=== PATIENT | male | born 1990 | race Caucasian/White ===

== ENCOUNTER 2025-01-03 10:32 | Inpatient (IN) | payer OTHER, SELFPAY ==
[2025-01-03] VITALS (21 sets, daily range): BP systolic 91–129; BP diastolic 50–86; PULSE 67–96; RESP 9–30; TEMP 37.1–37.4; O2SAT 94–100; BMI 29.5
--- OUTSIDE RECORDS SUMMARY | 2025-01-03 10:40 | XMS_ITS | Clinical Summary ---
Author Organization [facility] Address [address] 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 Unavailable Primary Care Provider Unavailabl e Allergies No known active allergies Active Problems Problem Noted Date Diagnosed Date Closed fracture of metatarsal bone(s) 01/17/2011 Adjustment disorder with mix ed disturbance of emotions and conduct 11/08/2008 Academic problem 08/19/2008 Immunizations Immunization Administration Dates Next Due (M-M-R II/PRIORIX)(12 MO UP) MEASLES, MUMPS AND RUBELLA VIRUS VACCINE, 0.5 ML IM/SUBCUT 01/21/1996,01/02/1993 Dt Dtp Dtap Vaccine 04/05/2006, 6,07/24/1993,1992,09/08/1992,1991,1991 HIB, Unspecified Formulation 03/17/1993, 01/02/1993,09/08/1992,1991 Hepatitis B Vaccine 04/07/1996,01/21/1996,1995 IPV/OPV 01/21/1996,199 4,1991,1991 Family History Medical History Relation Name Comments Healthy Brother 1 Healthy Brother 2 Healthy Father Healthy Mother Healthy Sister Relation Name Status Comments Brother 1 Alive Brother 2 Alive Father Alive Mother Alive Sister Alive Social History Tobacco Use Types Packs/Day Years Used Date Smoking Tobacco: Some Days Smokeless Tobacco: Never Comments:Quit smokin-3 c igarettes per day Alcohol Use Standard Drinks/Week Comments No 0 (1 standard drink = 0.6 oz pur e alcohol) Sex and Gender Information Value Date Recorded Sex Assigned at Not on file 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 Gender Identity Not on file Sexual Orientation Not on file Plan of Treatment Health Maintenance Due Date Last Done Comments DTAP/TDAP/TD VACCINES (7 - Tdap) 04/05/2016 04/05/2006, 04/07/1996, 07/24/1993, Additional history exists HPV VACCINES (1 - 3-dose SCD M series) 08/31/2018 INFLUENZA VACCINE (#1) 2024 HEPATITIS B VACCINES Completed 04/07/1996, 01/21/1996, 07/25/1995 Medical Devices Implanted Type Area Nutritional Services Host Device Identifier Shelf Expiration Date Model / Serial / Lot Wire K Trocar Dbl .[id number] Implanted:Qty: 1 on 01/23/2011 Wire Left: Foot [facility] [id number]- 29-45 S / / [id number] Insurance [place] CCN OPTUM
--- NOTE | 2025-01-03 11:13 | CTR_ITS ---
PROCEDURE INFORMATION: Exam: CT Abdomen And Pelvis With Contrast Exam date and time: 01/03/2025 11:30 AM Age: 34 years old Clinical indication: Abdominal pain; Localized; Right; Additional info: Abd pain TECHNIQUE: Imaging protocol: Computed tomography of the abdomen and pelvis with contrast. Radiation optimization: All CT scans at this facility use at least one of these dose optimization techniques: automated exposure control; mA and/or kV adjustment per patient size (includes targeted exams where dose is matched to clinical indication); or iterative reconstruction. Contrast material: OMNIPAQUE 350; Contrast volume: 100 ml; Contrast route: INTRAVENOUS (IV); COMPARISON: No relevant prior studies available. RADIATION DOSE METRICS: Total DLP (mGy-cm): 685.75 FINDINGS: Liver: Normal. No mass. Gallbladder and biliary ducts: Normal. No calcified stones. No ductal dilation. Pancreas: Normal. No ductal dilation. Spleen: Normal. No splenomegaly. Adrenal glands: Normal. No mass. Kidneys and ureters: Normal. No hydronephrosis. Stomach and bowel: Unremarkable. No obstruction. No mucosal thickening. Appendix: No evidence of appendicitis. Intraperitoneal space: Unremarkable. No free air. No significant fluid collection. Vasculature: Unremarkable. No abdominal aortic aneurysm. Lymph nodes: Mildly prominent mesenteric lymph nodes noted in the right lower quadrant, the largest measuring 0.7 cm in transverse dimension. Urinary bladder: Unremarkable as visualized. Reproductive: Unremarkable as visualized. Bones/joints: Unremarkable. No acute fracture. Soft tissues: Unremarkable. CT/CT abdomen pelvis w con* [id number] IMPRESSION: Imaging findings suggestive of mesenteric adenitis. Otherwise no acute findings.
--- NOTE | 2025-01-03 11:18 | W.ED.ABDPA2 ---
HPI - Abdominal Pain General: Chief Complaint: Abdominal Pain Stated Complaint: n/v, upper R abd pain Time Seen by Provider: 01/03/25 11:04 Source: patient Mode of arrival: ambulatory Limitations: no limitations History of Present Illness: 34-year-old male states he started having severe right sided abdominal pain at 530 this morning. States pain is very sharp in nature rates it a 10 out of 10 he is in obvious distress. States is mainly in the right upper quadrant. Denies any history of abdominal issues in the past. Associated Symptoms: Denies chills, diarrhea, dysuria, fever(s), nausea and vomiting Related Data Home Medications ?Medication ?Instructions ?Recorded ?Confirmed citalopram 20 mg tablet 30 mg PO DAILY anxiety 01/03/25 01/03/25 Allergies Allergy/AdvReac Type Severity Reaction Status Date / Time No Known Allergies Allergy Verified 01/03/25 10:45 Review of Systems Const: Denies: fever(s), chills, body aches or change in appetite ENMT: Denies: throat pain or dental pain Card: Denies: chest pain Resp: Denies: dyspnea GI: Reports: abdominal pain; Denies: nausea, vomiting or diarrhea : Denies: dysuria Musc: Denies: neck pain or back pain Skin/Breast: Denies: rash Neuro: Denies: headache(s) Physical Exam Const: COMMON NORMALS: patient oriented x3 HENMT: COMMON NORMALS: normocephalic and atraumatic HEAD & SCALP: normocephalic and atraumatic Eye: COMMON NORMALS: Equal, round and reactive pupils present and EOMs intact bilaterally PUPIL: Yes Equal, round and reactive pupils present Neck/C-Spine: COMMON NORMALS: full ROM and supple Chest: COMMONS NORMALS: normal inspection of the chest Resp: COMMON NORMALS: normal respiratory effort, No retractions, No use of accessory muscles and clear to auscultation bilaterally AUSCULTATION: clear to auscultation bilaterally Cardio: COMMON NORMALS: regular rate, regular rhythm and No murmurs present (Cardio) RATE: regular rate RHYTHM: regular rhythm GI: COMMON NORMALS: Normal to inspection, nondistended, normoactive bowel sounds present, Soft to palpation and no masses PALPATION: Yes Soft to palpation and Yes Tenderness to palpation present (GI) Details: RUQ Extremity: COMMON NORMALS: normal to inspection and full ROM Neuro: COMMON NORMALS: patient oriented x3, moves all extremities and no focal motor deficits Psych: COMMON NORMALS: mental status grossly normal, Normal thought process present and cooperative THOUGHT PROCESS: Normal thought process present Skin: COMMON NORMALS: no rashes or lesions noted and no wounds GENERAL SKIN EXAM: no rashes or lesions noted Course Vital Signs: Vital signs: Vital Signs Temperature 98.8 F 01/03/25 10:46 Pulse Rate 92 01/03/25 13:15 Respiratory Rate 22 H 01/03/25 11:53 Blood Pressure 105/57 01/03/25 13:15 Pulse Oximetry 100 01/03/25 13:15 Oxygen Delivery Me thod Room Air 01/03/25 13:15 MDM - Abdominal Pain Medical Decision Making Patient presents here with abdominal pain he was found to have an elevated white count along with elevated lactate CT along with CTA showed no acute findings his pain has improved on my reexam he he had minimal tenderness but will admit him with his elevated white count lactate he did receive sepsis bolus along with IV antibiotics. I spoke to surgeon on-call who is consulted and will admit to ICU Medical Records I reviewed the patient's medical records. Lab Data I reviewed the patient's lab results. 01/03/25 11:12 01/03/25 11:12 Labs/Radiology: Radiology Impressions Abdomen/Pelvis CT 01/03/25 11:13 IMPRESSION: Imaging findings suggestive of mesenteric adenitis. Otherwise no acute findings. Chest/Abdomen/Pelvis CT 01/03/25 12:01 IMPRESSION: No acute pathology in the chest, abdomen, or pelvis. Laboratory Results WBC 26.59 10^3/uL (3.29-11.43) H 01/03/25 11:12 RBC 4.95 10^6/uL (3.85-5.65) 01/03/25 11:12 Hgb 15.00 g/dL (11.27-16.99) 01/03/25 11:12 Hct 45.4 % (37-53) 01/03/25 11:12 MCV 91.7 fl (82-101) 01/03/25 11:12 MCH 30.3 pg (27-33) 01/03/25 11:12 MCHC 33.0 g/dL (30-55) 01/03/25 11:12 RDW 13.2 % (12.1-15.1) 01/03/25 11:12 Plt Count 396 10^3/cmm (157-399) 01/03/25 11:12 MPV 9.5 fL (7.4-10.4) 01/03/25 11:12 Neut % (Auto) 82.7 % 01/03/25 11:12 Lymph % (Auto) 7.4 % 01/03/25 11:12 [place] % (Auto) 8.8 % 01/03/25 11:12 Eos % (Auto) 0.0 % 01/03/25 11:12 Baso % (Auto) 0.3 % 01/03/25 11:12 Neut # (Auto) 21.99 10^3/uL (1.8-7.7) H 01/03/25 11:12 Lymph # (Auto) 2.0 10^3/uL (0.8-4.8) 01/03/25 11:12 [place] # (Auto) 2.3 10^3/uL (0.2-0.9) H 01/03/25 11:12 Eos # (Auto) 0.0 10^3/uL (0.0-0.8) 01/03/25 11:12 Baso # (Auto) 0.1 10^3/uL (0.0-0.1) 01/03/25 11:12 Nucleated RBC % (auto) 0 % 01/03/25 11:12 Nucleated RBCs # 0.0 /100WBC 01/03/25 11:12 Specimen Type Venous 01/03/25 12:23 Sample Site Brachial, left 01/03/25 12:23 ABG pH 7.24 (7.35-7.45) L 01/03/25 12:23 ABG pCO2 31.8 mmHg (35-45) L 01/03/25 12:23 ABG pO2 30.7 mmHg (80.0-100.0) L* 01/03/25 12:23 ABG PO2/FiO2 Ratio 146 01/03/25 12:23 ABG HCO3 13.6 mmol/L (22-26) L 01/03/25 12:23 ABG Base Excess -12.6 mmol/L (-2.0-2.0) L 01/03/25 12:23 Mayank Test N/a 01/03/25 12:23 Hematocrit 42.3 % (42-52) 01/03/25 12:23 O2 Delivery Device Room air 01/03/25 12:23 FiO2 21.0 % 01/03/25 12:23 Nuclear Logging Engineer ID Amh 01/03/25 12:23 Sodium 143 mmol/L (136-145) 01/03/25 11:12 Potassium 3.8 mmol/L (3.5-5.1) 01/03/25 11:12 Chloride 100 mmol/L (98-107) 01/03/25 11:12 Carbon Dioxide 9 mmol/L (22-29) L 01/03/25 11:12 Anion Gap 37.8 (5-19) H 01/03/25 11:12 BUN 15 mg/dL (6-20) 01/03/25 11:12 Creatinine 1.1 mg/dL (0.7-1.2) 01/03/25 11:12 GFR Calculation 77.1 mL/min (90-130) L 01/03/25 11:12 Glucose 93 mg/dL (65-115) 01/03/25 11:12 Calculated Osmolality 297 mOsm/kg (285-295) H 01/03/25 11:12 Lactic Acid 10.6 mmol/L (0.5-2.2) H* 01/03/25 11:12 Calcium 9.4 mg/dL (8.5-10.5) 01/03/25 11:12 Total Bilirubin 0.6 mg/dL (0.15-1.2) 01/03/25 11:12 AST 25 U/L (0-40) 01/03/25 11:12 ALT 21 U/L (0-41) 01/03/25 11:12 Alkaline Phosphatase 50 U/L (40-130) 01/03/25 11:12 Total Protein 8.7 g/dL (6.6-8.7) 01/03/25 11:12 Albumin 5.0 g/dL (3.5-5.2) 01/03/25 11:12 Globulin 3.7 g/dL (1.3-4.6) 01/03/25 11:12 Lipase 13 U/L (13-60) 01/03/25 11:12 Urine Color Yellow (Yellow) 01/03/25 13:13 Urine Appearance Clear (CLEAR) 01/03/25 13:13 Urine pH 5.0 (5-7) 01/03/25 13:13 Ur Specific [place] 1.088 (1.005-1.030) H 01/03/25 13:13 Urine Protein Trace (Negative) A 01/03/25 13:13 Urine Glucose (UA) Negative (Normal) 01/03/25 13:13 Urine Ketones 3+ (Negative) H 01/03/25 13:13 Urine Blood Negative (Negative) 01/03/25 13:13 Urine Nitrate Negative (Negative) 01/03/25 13:13 Urine Bilirubin Negative (Negative) 01/03/25 13:13 Urine Urobilinogen 0.2 mg/dL (Negative) 01/03/25 13:13 Ur Leukocyte Esterase Negative (Negative) 01/03/25 13:13 Urine RBC 0-2 /hpf (0-2) 01/03/25 13:13 Urine WBC 0-5 /hpf (0-5) 01/03/25 13:13 Ur Squamous Epith Cells 0-5 /hpf (0-5) 01/03/25 13:13 Amorphous Sediment Not Reportable 01/03/25 13:13 Urine Bacteria None seen /hpf (NONE) 01/03/25 13:13 Hyaline Casts 0-4 /lpf H 01/03/25 13:13 Urine Opiates Screen Positive ng/mL (Negative) H 01/03/25 13:13 Ur Barbiturates Screen Negative ng/mL (Negative) 01/03/25 13:13 Ur Phencyclidine Scrn Negative ng/mL (Negative) 01/03/25 13:13 Ur Amphetamines Screen Negative ng/mL (Negative) 01/03/25 13:13 U Benzodiazepines Scrn Negative ng/mL (Negative) 01/03/25 13:13 Urine Cocaine Screen Negative ng/mL (Negative) 01/03/25 13:13 U Marijuana (THC) Screen Positive ng/mL (Negative) H 01/03/25 13:13 All radiology interpretation(s) finalized by discharge Critical Care Time Critical Care Time: Critical Care Time: Yes Total Critical Care Time: 40 Attestation: The high probability of a clinically significant, sudden or life threatening deterioration of the patient's gi system(s) required my full and direct attention, intervention and personal management. The critical care time is as shown. 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
[2025-01-03 11:26] LABS: Hematocrit 45.4 % (37-53); Hemoglobin 15.00 g/dL (11.27-16.99); Mean Corpuscular HGB Conc 33.0 g/dL (30-55); Mean Corpuscular Hemoglobin 30.3 pg (27-33); Mean Corpuscular Volume 91.7 fl (82-101); Nucleated Red Blood Cells % 0 %; Platelet Count 396 10^3/cmm (157-399); Red Blood Count 4.95 10^6/uL (3.85-5.65); White Blood Count 26.59 10^3/uL (3.29-11.43)
[2025-01-03] MEDS: HYDROmorphone 0.5 MG/0.5 ML INJ 1 MG IVP ×2 (11:29→13:09)
[2025-01-03] MEDS: ondansetron 2 mg/ML SDV 2 mL 4 MG IVP ×3 (11:30→19:59)
[2025-01-03] MEDS: iohexol 350 mg/mL 500 mL Btl (per mL) IV ×2 (11:33→12:41)
[2025-01-03 11:47] LABS: Alanine Aminotransferase 21 U/L (0-41); Albumin Level 5.0 g/dL (3.5-5.2); Alkaline Phosphatase 50 U/L (40-130); Anion Gap 37.8 (5-19); Aspartate Amino Transferase 25 U/L (0-40); Blood Urea Nitrogen 15 mg/dL (6-20); Calcium 9.4 mg/dL (8.5-10.5); Chloride 100 mmol/L (98-107); Creatinine Clr Calc Pharmacy 106.3342; Globulin 3.7 g/dL (1.3-4.6); Glucose 93 mg/dL (65-115); Lipase 13 U/L (13-60); Osmolality Calculated 297 mOsm/kg (285-295); Potassium 3.8 mmol/L (3.5-5.1); Sodium 143 mmol/L (136-145); Total Protein 8.7 g/dL (6.6-8.7)
[2025-01-03 11:49] LABS: Carbon Dioxide 9 mmol/L (22-29)
[2025-01-03 11:55] LABS: Lactic Sepsis W/Reflex 10.6 mmol/L (0.5-2.2)
[2025-01-03 12:00] LABS: Reflex Lactate Order REFLEX LACTIC ORDERD
--- NOTE | 2025-01-03 12:01 | CTR_ITS ---
PROCEDURE INFORMATION: Exam: CTA Chest With Contrast CTA Abdomen and Pelvis With Contrast Exam date and time: 01/03/2025 12:33 PM Age: 34 years old Clinical indication: Right-sided; Abdominal pain; Localized; Right upper quadrant (ruq); Additional info: Cp/abd pain TECHNIQUE: Imaging protocol: Computed tomographic angiography of the chest with contrast. Exam focused on the arteries. Computed tomographic angiography of the abdomen and pelvis with contrast. Exam focused on the arteries. 3D rendering (Not supervised by radiologist): MIP and/or 3D reconstructed images were created by the technologist. Radiation optimization: All CT scans at this facility use at least one of these dose optimization techniques: automated exposure control; mA and/or kV adjustment per patient size (includes targeted exams where dose is matched to clinical indication); or iterative reconstruction. Contrast material: OMNI 350; Contrast volume: 100 ml; Contrast route: INTRAVENOUS (IV); COMPARISON: CT abdomen pelvis w con* [id number] 01/03/2025 11:30 AM RADIATION DOSE METRICS: Total DLP (mGy-cm): 1099 FINDINGS: VASCULATURE: Pulmonary arteries: Normal. No pulmonary emboli. Aorta: No aortic aneurysm. No aortic dissection. Celiac trunk and mesenteric arteries: No occlusion or significant stenosis. Renal arteries: No occlusion or significant stenosis. Right iliac arteries: No occlusion or significant stenosis. Left iliac arteries: No occlusion or significant stenosis. CHEST: Lungs: Unremarkable. No consolidation. No masses. Pleural spaces: Unremarkable. No pneumothorax. No pleural effusion. Heart: Unremarkable. No cardiomegaly. No pericardial effusion. ABDOMEN AND PELVIS: Liver: The liver is diffusely decreased in density, compatible with hepatic steatosis. No discrete mass lesion identified. Gallbladder and biliary ducts: Unremarkable. No calcified stones. No ductal dilation. Pancreas: Unremarkable. No mass. No ductal dilation. Spleen: Unremarkable. No splenomegaly. Adrenal glands: Unremarkable. No mass. Kidneys and ureters: Unremarkable. No solid mass. No hydronephrosis. Stomach and bowel: Unremarkable. No obstruction. No mucosal thickening. Appendix: No evidence of appendicitis. Intraperitoneal space: Unremarkable. No free air. No significant fluid collection. Urinary bladder: Unremarkable. No mass. Reproductive: Unremarkable as visualized. Lymph nodes: Small right hilar calcified lymph nodes noted, likely sequela of previous granulomatous disease. Bones/joints: Unremarkable. No acute fracture. Soft tissues: Unremarkable. CT/CT angio chest w abd pel w con IMPRESSION: No acute pathology in the chest, abdomen, or pelvis.
[2025-01-03 12:35] LABS: ABG PCO2 31.8 mmHg (35-45); ABG PH Result 7.24 (7.35-7.45); Arterial Blood Gas Hematocrit 42.3 % (42-52); Blood Gas Operator Identificat AMH; Blood Gas Sample Site Brachial, left; HCO3 ABG 13.6 mmol/L (22-26); PO2 ABG 30.7 mmHg (80.0-100.0); PO2 FiO2 Ratio Arterial Blood 146
[2025-01-03 12:38] LABS: Blood Gas Sample Type Venous
[2025-01-03] MEDS: piperacillin-tazobactam 3.375 GM in sodium chloride 0.9% (plus) 50 ML IV (12:51)
[2025-01-03 13:21] LABS: Glucose Urine UA Negative (Normal); Nitrate Urine Negative (Negative)
[2025-01-03 13:26] LABS: Add Urine Microscopic? YES; Specific Gravity, Urine 1.088 (1.005-1.030)
[2025-01-03 13:49] LABS: PCP Screen Urine Negative (Negative)
--- NOTE | 2025-01-03 14:07 | P.CONIM_ITS ---
Providers/Reason For Consult 2 Consulting Physician/Specialty*: General Surgery Reason for Consult*: Severe abdominal pain and lactic acidosis History of Present Illness History of Present Illness Prince Oconnor is a 34 year old male who presents to the hospital with severe abdominal pain in the right upper quadrant that started around 5:30 AM this morning. The pain was so severe that the patient was having difficulty breathing causing hyperventilation. At the time of his arrival to the ER he was noted to have a white count of 26 and a lactate level of 10 but a normal CTA of the chest abdomen and pelvis. His pain improved after medication administration by the time of my evaluation abdominal pain is fairly controlled patient is breathing normally. Endorses having drink last night but no significant use of illicit substances. Review of Systems 2 General: Reports: 10 or more systems reviewed and unremarkable except in HPI and below Medications/Allergies Home Medications ?Medication ?Instructions ?Recorded ?Confirmed ?Last Taken ?Type citalopram 20 mg tablet 30 mg PO DAILY anxiety 01/0301/03/25 01/02/25 21:00 History Allergies Allergy/AdvReac Type Severity Reaction Status Date / Time No Known Allergies Allergy Verified 01/03/25 10:45 Vitals/I&O/Wt Last Vital Signs Temp 98.8 F 01/03/25 10:46 Pulse 92 01/03/25 13:15 Resp 22 H 01/03/25 11:53 BP 105/57 01/03/25 13:15 Pulse Ox 100 01/03/25 13:15 O2 Del Method Room Air 01/03/25 13:15 01/02/25 01/03/25 01/03/25 22:59 06:59 14:59 Intake Total 2048 Balance 2048 Weight last 48 hrs Weight 200 lb Physical Exam 2 GI: OTHER: Benign abdominal exam abdomen soft minimally tender in the right upper quadrant nondistended. Data 01/03/25 11:12 01/03/25 11:12 Micro: Microbiology 01/03/25 13:05 Blood Culture - Preliminary Blood SPECIMEN COLLECTED 01/03/25 12:22 Blood Culture - Preliminary Blood SPECIMEN COLLECTED A&P Assessment and plan 1. Abdominal pain: Plan: After complete history physical examination and review of all available clinical data the following is my assessment. Patient clinical presentation is unusual. I think he is symptoms are multifactorial, but there is a high likelihood of a transitory vascular spasm causing the elevation in the lactate level as well as the severe abdominal pain. This may have been worsened by severe hyperventilation as described by the patient has noted on his CO2 level of 9 when he arrived. There is no indication for any acute surgical intervention, I do agree with overnight observation, IV hydration, monitoring of lactate level and abdominal exam and empiric IV antibiotics. If this is a transitory issue as suspected patient most likely will have significant improvement of all the laboratory markets and physical examination by the morning. General surgery will continue to follow-up, all other management per primary team. PDMP PDMP Reviewed: Not Reviewed Coding Level of Care Code Acute Code for Chg Fwd Diagnoses Abdominal pain R10.9
[2025-01-03 14:49] LABS: Lactic Acid level (Lactate) 4.9 mmol/L (0.5-2.2)
--- OUTSIDE RECORDS SUMMARY | 2025-01-03 14:49 | XMS_ITS | Clinical Summary ---
Author Organization [facility] Address [address] 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 Gender Identity Not on file Sexual Orientation Not on file Plan of Treatment Health Maintenance Due Date Last Done Comments DTAP/TDAP/TD VACCINES (7 - Tdap) 04/05/2016 04/05/2006, 04/07/1996, 07/24/1993, Additional history exists HPV VACCINES (1 - 3-dose SCD M series) 08/31/2018 INFLUENZA VACCINE (#1) 2024 HEPATITIS B VACCINES Completed 04/07/1996, 01/21/1996, 07/25/1995 Medical Devices Implanted Type Area Utility Clerk Device Identifier Shelf Expiration Date Model / Serial / Lot Wire K Trocar Dbl .[id number] Implanted:Qty: 1 on 01/23/2011 Wire Left: Foot [email or web address] [id number]- 29-45 S / / [id number] Insurance [place] CCN [employer]
--- NOTE | 2025-01-03 15:55 | P.HP_ITS ---
Providers/Chief Complaint 2 Admitting Physician: Allyn Plummer MD Chief Complaint: n/v, upper R abd pain History of Present Illness history as per the previous notes and the patient: Prince Oconnor is a 34 year old male who presents to the hospital with severe abdominal pain in the right upper quadrant that started around 5:30 AM this morning. The pain was so severe that the patient was having difficulty breathing causing hyperventilation. At the time of his arrival to the ER he was noted to have a white count of 26 and a lactate level of 10 but a normal CTA of the chest abdomen and pelvis. His pain improved after medication administration by the time of my evaluation abdominal pain is fairly controlled patient is breathing normally. Endorses having drink last night but no significant use of illicit substances the patient has recently started tirzepatide for wt loss and been 2 weeks. and has been taking escitalopram. no other medicine use. no chest pain/pressure, skin rash, diaphoresis, LLE swellings, orthopnea or PND. Review of Systems 2 General: Reports: 10 or more systems reviewed and unremarkable except in HPI and below Medications/Allergies Home Medications ?Medication ?Instructions ?Recorded ?Confirmed ?Last Taken ?Type citalopram 20 mg tablet 30 mg PO DAILY anxiety 01/0301/03/25 01/02/25 21:00 History Allergies Allergy/AdvReac Type Severity Reaction Status Date / Time No Known Allergies Allergy Verified 01/03/25 10:45 Vitals/I&O/Wt Last Vital Signs Temp 98.8 F 01/03/25 10:46 Pulse 93 01/03/25 15:00 Resp 22 H 01/03/25 11:53 BP 102/63 01/03/25 15:00 Pulse Ox 96 01/03/25 15:00 O2 Del Method Room Air 01/03/25 15:08 01/03/25 01/03/25 01/03/25 06:59 14:59 22:59 Intake Total 3299 / 3299 Balance 3299 / 3299 Weight last 48 hrs Weight 90.401 kg Weight 90.718 kg Physical Exam 2 Narrative: General: Alert oriented x3, patient seen lying comfortably at room air HEENT: Normocephalic, atraumatic, EOMI, breathing without any distress Cardio: Regular rate rhythm, normal S1-S2, no murmurs rubs gallops, JVD normal Respiratory: Good bilateral air entry, no wheezes no rhonchi appreciated GI: Abdomen soft, mild right subcostal tenderness, nondistended, normoactive bowel sounds present all 4 quadrants, Neuro: Cranial nerves II to XII intact, strength 5/5, sensation 5/5, no gross neurological deficit Behavior: Appropriate and cooperative Extremities: Pulses 2+, no edema, no cyanosis Skin: Visible skin intact, no rashes Data 01/03/25 11:12 01/03/25 11:12 Micro: Microbiology 01/03/25 13:05 Blood Culture - Preliminary Blood SPECIMEN COLLECTED 01/03/25 12:22 Blood Culture - Preliminary Blood SPECIMEN COLLECTED A&P Assessment and plan 1. Elevated lactic acid level: 2. Abdominal pain: 3. Vascular spasm: Plan: - vascular spasm/muscular spasm leading to abd pain? causing high lactate and wbcs surgery onboard and will follow, negative CTA and CT abd US abd to look for biliary tract since it is more sensitive than CT cefepime empirically blood cultures sent and to follow supportive measures for nausea and vomiting PPI adequate analgesia avoid over use of opioids since the patient can have constipation and abd pain continue adequate hydration Soft diet - Anxiety: cont home dose escitalopram VTE: enoxaparin Diet: soft diet PDMP PDMP Reviewed: Not Reviewed Attestations 2 Medical Necessity Statement*: Prince Oconnor's hospital stay will require greater than 2 midnights for management of severe abdominal pain likely vascular spasm that might lead to mesenteri or bowel ischemia and further management Time Spent in Patient Care: 16 - 35 minutes (>than 50% of time sp ent in counselling and/or direct pt care on unit) . Critical Care Time: The high probability of a clinically significant, sudden or life threatening deterioration, as referenced in this documentation, required my full and direct attention, intervention and personal management. The critical care time shown is in addition to time spent performing any reported separately billable procedures and includes the following: [x] Data and vital sign review and interpretation [x ] Patient assessment, examination and intervention [x] Medication orders and management [x] Patient/Family updates as able [x] Care Coordination and Documentation. Critical Care Time (min): 35 Other Attestations: Patient condition has been discussed at length with the patient/family, I have independently reviewed the chart labs imaging and diagnostics and EKG. the goals of care and code status with the patient/family/NOK/legal construction representative, and documented accordingly. The patient/family has been informed about the current condition and further plan of care. Agreed with the plan of care and understood without any language barrier. This documentation was created by [employer] coal hauler operator software. Every effort was made to ensure accuracy of coal hauler operator. Any obvious errors or omissions should be clarified with the author of the document. Coding Level of Care Code Critical Care >/= 30 minutes Diagnoses Elevated lactic acid level R79.89 Abdominal pain R10.9 Vascular spasm I73.9
[2025-01-03] MEDS: cefepime 2,000 mg SDV 2000 MG IVP ×2 (16:04→23:53)
--- NOTE | 2025-01-03 17:32 | USR_ITS ---
PROCEDURE INFORMATION: Exam: US Abdomen Complete Exam date and time: 01/04/2025 7:19 AM Age: 34 years old Clinical indication: Nausea and vomiting; Abdominal pain; Acute; Additional info: Ruq pain with nausea vomiting and high lactate, currently eating dinner at 5:38pm. Nurse notified to keep patient in npo at TECHNIQUE: Imaging protocol: Real-time ultrasound of the abdomen with image documentation. Complete exam. COMPARISON: CT abdomen pelvis w con* [id number] 01/03/2025 11:30 AM FINDINGS: Liver: Normal. The right liver lobe measures 15.1 cm in length. No mass. Gallbladder: Normal. No gallstones. There is no gallbladder wall thickening. Biliary ducts: Normal. No stones. No dilation. Pancreas: Visualized pancreas is unremarkable. Right kidney: Normal. The right kidney measures 9.4 x 4.9 x 5.1 cm. No mass. No hydronephrosis. Left kidney: Normal. The left kidney measures 10.6 x 6.2 x 5.6 cm. No mass. No hydronephrosis. Spleen: Normal. The spleen measures 10.5 cm in length. No splenomegaly. Normal direction of flow is demonstrated in the main portal vein. Aorta: Normal. No aneurysm as visualized in the upper abdomen. Inferior vena cava: Normal as visualized in the upper abdomen. US/US abdomen complete* [id number] IMPRESSION: No acute findings.
[2025-01-03] MEDS: HYDROcodone-acetaminophen 5-325 mg Tablet 1 TAB PO (17:48)
[2025-01-03] MEDS: dextrose 5%-sod chloride 0.9% 1,000 ML 75 ML IV (23:54)
[2025-01-04] VITALS (27 sets, daily range): BP systolic 99–144; BP diastolic 48–90; PULSE 51–77; RESP 13–22; TEMP 36.4–37.3; O2SAT 94–99
[2025-01-04] MEDS: HYDROcodone-acetaminophen 5-325 mg Tablet 1 TAB PO ×3 (00:10→20:33)
[2025-01-04 00:16] LABS: Procalcitonin 0.71 ng/mL (0-0.5); Thyroid Stimulating Hormone 0.75 uIU/mL (0.27-4.20)
[2025-01-04 00:25] LABS: Estmated Average Glucose 97; Hemoglobin A1C 5.0 % (4.0-6.0)
[2025-01-04 02:01] LABS: Iron 63 ug/dL (59-158); Total Iron Binding Capacity 303 mcg/dl; Unsaturated Iron Binding 240 ug/dL (112-347); Vitamin B12 987 pg/mL (232-1245)
[2025-01-04 05:57] LABS: Hematocrit 36.8 % (37-53); Hemoglobin 12.30 g/dL (11.27-16.99); Mean Corpuscular HGB Conc 33.4 g/dL (30-55); Mean Corpuscular Hemoglobin 30.4 pg (27-33); Mean Corpuscular Volume 91.1 fl (82-101); Nucleated Red Blood Cells % 0 %; Platelet Count 285 10^3/cmm (157-399); Red Blood Count 4.04 10^6/uL (3.85-5.65); White Blood Count 15.32 10^3/uL (3.29-11.43)
[2025-01-04 06:28] LABS: Cholesterol 147 mg/dL (0-200); HDL Cholesterol 47 mg/dL (60-100); Magnesium 2.0 mg/dL (1.7-2.3); Triglycerides 77 mg/dL (0-150); VLDL Cholestrol Calculation 15 mg/dL (0-30)
[2025-01-04 06:29] LABS: Alanine Aminotransferase 15 U/L (0-41); Albumin Level 3.7 g/dL (3.5-5.2); Alkaline Phosphatase 35 U/L (40-130); Anion Gap 15.7 (5-19); Aspartate Amino Transferase 18 U/L (0-40); Blood Urea Nitrogen 17 mg/dL (6-20); Calcium 8.1 mg/dL (8.5-10.5); Carbon Dioxide 21 mmol/L (22-29); Chloride 107 mmol/L (98-107); Creatinine Clr Calc Pharmacy 130.1741; Globulin 2.6 g/dL (1.3-4.6); Glucose 95 mg/dL (65-115); Osmolality Calculated 291 mOsm/kg (285-295); Potassium 3.7 mmol/L (3.5-5.1); Sodium 140 mmol/L (136-145); Total Protein 6.3 g/dL (6.6-8.7)
[2025-01-04 07:09] LABS: Lactic Sepsis W/Reflex 0.8 mmol/L (0.5-2.2)
[2025-01-04] MEDS: ondansetron 2 mg/ML SDV 2 mL 4 MG IVP ×2 (07:50→20:43)
[2025-01-04] MEDS: cefepime 2,000 mg SDV 2000 MG IVP ×3 (07:50→23:16)
--- NOTE | 2025-01-04 09:13 | P.PN_ITS ---
Subjective 2 Subjective: Patient admitted yesterday with severe abdominal pain leukocytosis and lactic acidosis. Has been doing okay over the last 24 hours tolerating diet only minimal nausea minimal pain in the right upper quadrant otherwise feeling good. Vitals/I&O/Wt Last Vital Signs Temp 98.4 F 01/04/25 08:00 Pulse 77 01/04/25 08:00 Resp 20 H 01/04/25 08:00 BP 99/48 01/04/25 08:00 Pulse Ox 99 01/04/25 08:00 O2 Del Method Room Air 01/04/25 08:00 01/03/25 01/04/25 01/04/25 22:59 06:59 14:59 Intake Total 2080 / 5379 200 / 200 Balance 2080 / 5379 200 / 200 Weight last 48 hrs Weight 200 lb 11.2 oz Weight 199 lb 4.8 oz Weight 200 lb Physical Exam 2 GI: OTHER: Benign abdominal exam abdomen soft nontender nondistended. Data 01/04/25 05:24 01/04/25 05:24 Micro: Microbiology 01/03/25 13:05 Blood Culture - Preliminary Blood SPECIMEN COLLECTED 01/03/25 12:22 Blood Culture - Preliminary Blood SPECIMEN COLLECTED A&P Assessment and plan 1. Abdominal pain: 2. Vascular spasm: Plan: I had extensive discussion with the patient I think probably his symptoms were more likely related to vascular spasm rather than any other intra-abdominal pathology. His lactate level has trended down all the way to 0.8 white count has trended down to 15 clinically he looks good. Since he is procalcitonin is 0.7 and the white count still mildly elevated I would recommend that he completes a 5-day course of antibiotics (augmentin), . Other than that there is no indication for any surgical intervention and no need for additional follow-up with general surgery. Case was discussed with medical team and all other management will be continued by primary team. PDMP PDMP Reviewed: Not Reviewed Attestations 2 Medical Necessity Statement*: Per medical team Coding Level of Care Code Acute Code for [facility] Fwd Diagnoses Abdominal pain R10.9 Vascular spasm I73.9
[2025-01-04] MEDS: pantoprazole 40 mg SDV IVP ×2 (11:46→20:42)
--- NOTE | 2025-01-04 11:48 | PC.SOCIAL ---
*IMM* Completed, initialed, dated and timed in the chart. Copy received by patient.
--- NOTE | 2025-01-04 15:49 | P.PN_ITS ---
Subjective 2 Subjective: Hospital course, labs appreciated. Patient comfortably in bed. States nausea has improved. Still complaining of pain in the right upper quadrant on taking a deep breath and on laying on the same side. States feeling better than yesterday. Has remained hemodynamically stable and afebrile. Vitals/I&O/Wt Last Vital Signs Temp 98.3 F 01/04/25 12:00 Pulse 53 L 01/04/25 14:00 Resp 16 01/04/25 14:00 BP 115/75 01/04/25 14:00 Pulse Ox 98 01/04/25 12:00 O2 Del Method Room Air 01/04/25 12:00 01/04/25 01/04/25 01/04/25 06:59 14:59 22:59 Intake Total 400 / 400 Balance 400 / 400 Weight last 48 hrs Weight 91.036 kg Weight 90.401 kg Weight 90.718 kg Physical Exam 2 Narrative: General: Alert oriented x3, patient seen lying comfortably at room air HEENT: Normocephalic, atraumatic, EOMI, breathing without any distress Cardio: Regular rate rhythm, normal S1-S2, no murmurs rubs gallops, JVD normal Respiratory: Good bilateral air entry, no wheezes no rhonchi appreciated GI: Abdomen soft, mild right subcostal tenderness, nondistended, normoactive bowel sounds present all 4 quadrants, Neuro: Cranial nerves II to XII intact, strength 5/5, sensation 5/5, no gross neurological deficit Behavior: Appropriate and cooperative Extremities: Pulses 2+, no edema, no cyanosis Skin: Visible skin intact, no rashes Data 01/04/25 05:24 01/04/25 05:24 Micro: Microbiology 01/03/25 13:05 Blood Culture - Preliminary Blood NEGATIVE TO DATE 01/03/25 12:22 Blood Culture - Preliminary Blood NEGATIVE TO DATE A&P Assessment and plan 1. Abdominal pain: Most likely in setting of severe gastritis due to alcohol use in setting of old GERD versus vascular spasm given new medication. Appreciate CT abdomen pelvis which ruled out gallbladder pathology, normal liver ultrasound, no concern for bowel ischemia, collection. Musculoskeletal possible but less likely as not getting aggravated on movements. Continue with [place] 5 mg every 6 hours as needed. Lactic acid levels have resolved. DC fluids. Change Protonix to 40 mg IV every 12 hourly. Continue with GI soft diet. Appreciate surgical recommendations. 2. Elevated lactic acid level: Resolved. 3. Vascular spasm: Plan: Leukocytosis: Most likely reactive given abdominal pain. Follow-up blood cultures. For now continue with empiric IV cefepime. Monitor daily. - Anxiety: cont home dose escitalopram VTE: enoxaparin Diet: soft diet PDMP PDMP Reviewed: Not Reviewed Attestations 2 Medical Necessity Statement*: Requires further hospitalization for management of abdominal pain with severe lactic acidosis Diagnoses Abdominal pain R10.9 Elevated lactic acid level R79.89 Vascular spasm I73.9
--- NOTE | 2025-01-04 17:54 | ECG_ITS ---
[facility] Date: 2025-01-04 Pat Name: Prince Oconnor Department: Room: 260 Gender: Male Medical Cash Poster: : 1990 Requested By: London Carter Order Number: [id number] Garrett MD: Venkat Roque M.D. Measurements Intervals [place] Rate: 44 P: 0 CT: 0 QRS: 69 QRSD: 91 T: 12 QT: 427 QTc: 369 Interpretive Statements Sinus bradycardia with episodes of junctional escape beats NONSPECIFIC T-WAVE ABNORMALITY ABNORMAL RHYTHM ECG No previous ECG available for comparison Electronically Signed On 01-05-2025 21:45:50 CDT by Venkat Roque M.D. [email or web address]
[2025-01-04] MEDS: sucralfate 1 gm/10 mL Oral Liq UDC PO (20:34)
[2025-01-05] VITALS: BP 144/90; PULSE 56; RESP 16; TEMP 37.3; O2SAT 97
[2025-01-05 01:41] VITALS: BP 144/90; PULSE 56; RESP 16; TEMP 37.3; O2SAT 97
[2025-01-05 03:22] LABS: Hematocrit 37.7 % (37-53); Hemoglobin 12.60 g/dL (11.27-16.99); Mean Corpuscular HGB Conc 33.4 g/dL (30-55); Mean Corpuscular Hemoglobin 30.0 pg (27-33); Mean Corpuscular Volume 89.8 fl (82-101); Nucleated Red Blood Cells % 0 %; Platelet Count 271 10^3/cmm (157-399); Red Blood Count 4.20 10^6/uL (3.85-5.65); White Blood Count 8.96 10^3/uL (3.29-11.43)
[2025-01-05 03:56] LABS: Alanine Aminotransferase 29 U/L (0-41); Albumin Level 3.9 g/dL (3.5-5.2); Alkaline Phosphatase 38 U/L (40-130); Anion Gap 13.4 (5-19); Aspartate Amino Transferase 30 U/L (0-40); Blood Urea Nitrogen 9 mg/dL (6-20); Calcium 8.3 mg/dL (8.5-10.5); Carbon Dioxide 23 mmol/L (22-29); Chloride 106 mmol/L (98-107); Creatinine Clr Calc Pharmacy 130.1741; Globulin 2.7 g/dL (1.3-4.6); Glucose 86 mg/dL (65-115); Osmolality Calculated 286 mOsm/kg (285-295); Potassium 3.4 mmol/L (3.5-5.1); Sodium 139 mmol/L (136-145); Total Protein 6.6 g/dL (6.6-8.7)
[2025-01-05 04:00] VITALS: BP 139/87; PULSE 51; RESP 17; TEMP 36.9; O2SAT 99
[2025-01-05 04:01] LABS: Magnesium 1.9 mg/dL (1.7-2.3)
[2025-01-05 06:00] VITALS: BP 139/87; PULSE 51; RESP 17; TEMP 36.9; O2SAT 99
[2025-01-05 07:42] VITALS: BP 118/66; PULSE 63; RESP 18; TEMP 36.6; O2SAT 99
--- NOTE | 2025-01-05 08:09 | PM.DCS ---
Discharge Providers Date of Admission: 01/03/25 14:08 Date of Discharge: January 05, 2025 Attending Provider at Admission: Allyn Plummer MD Attending Provider at Discharge: London Carter MD Diagnoses at Discharge Discharge Diagnosis 1. Abdominal pain: 2. Elevated lactic acid level: 3. Vascular spasm: Reason for Visit Reason for Visit: n/v, upper R abd pain Brief History: Per HPI Prince Oconnor is a 34 year old male who presents to the hospital with severe abdominal pain in the right upper quadrant that started around 5:30 AM this morning. The pain was so severe that the patient was having difficulty breathing causing hyperventilation. At the time of his arrival to the ER he was noted to have a white count of 26 and a lactate level of 10 but a normal CTA of the chest abdomen and pelvis. His pain improved after medication administration by the time of my evaluation abdominal pain is fairly controlled patient is breathing normally. Endorses having drink last night but no significant use of illicit substances the patient has recently started tirzepatide for wt loss and been 2 weeks. and has been taking escitalopram. no other medicine use. no chest pain/pressure, skin rash, diaphoresis, LLE swellings, orthopnea or PND. Hospital Course Hospital Course Patient was admitted for further evaluation and management of acute abdominal pain with elevated lactate. Multiple abdominal imaging was negative for bowel ischemia, gallbladder pathology, intra-abdominal Collection, pancreatitis. CTA was done which ruled out rib fracture, PE. It is believed his symptoms are most likely in setting of vasospasm due to new medications Zepbound versus severe gastritis from recent alcohol use. He was treated with IV fluids, Protonix. He has been discharged in stable condition on Protonix twice daily and Carafate ACHS. Physical Exam Narrative: General: Alert oriented x3, patient seen lying comfortably at room air HEENT: Normocephalic, atraumatic, EOMI, breathing without any distress Cardio: Regular rate rhythm, normal S1-S2, no murmurs rubs gallops, JVD normal Respiratory: Good bilateral air entry, no wheezes no rhonchi appreciated GI: Abdomen soft, mild right subcostal tenderness, nondistended, normoactive bowel sounds present all 4 quadrants, Neuro: Cranial nerves II to XII intact, strength 5/5, sensation 5/5, no gross neurological deficit Behavior: Appropriate and cooperative Extremities: Pulses 2+, no edema, no cyanosis Skin: Visible skin intact, no rashes Discharge Data Studies Completed and Pending Completed Studies During Hospitalization Category Date Time Status CT abdomen pelvis w con* [id number] Stat Cat Scan 01/03/25 11:[address] abdomen pelvis [CT Angio Chest + Abdomen Cat Scan 01/03/25 12:01 Completed Pelvis w/ contrast; [id number] + 22616] Stat US abdomen complete* [id number] Routine Ultrasound 01/03/25 17:32 Completed Pending at discharge Category Date Time Status Blood Culture Stat Lab 01/03/25 13:05 Results MAG [Magnesium] AM LABS Lab 01/06/25 04:00 Ordered Radiology Impressions Abdomen/Pelvis CT 01/03/25 11:13 IMPRESSION: Imaging findings suggestive of mesenteric adenitis. Otherwise no acute findings. Chest/Abdomen/Pelvis CT 01/03/25 12:01 IMPRESSION: No acute pathology in the chest, abdomen, or pelvis. Abdomen Ultrasound 01/03/25 17:32 IMPRESSION: No acute findings. Laboratory Results WBC 8.96 10^3/uL (3.29-11.43) 01/05/25 01:46 RBC 4.20 10^6/uL (3.85-5.65) 01/05/25 01:46 Hgb 12.60 g/dL (11.27-16.99) 01/05/25 01:46 Hct 37.7 % (37-53) 01/05/25 01:46 MCV 89.8 fl (82-101) 01/05/25 01:46 MCH 30.0 pg (27-33) 01/05/25 01:46 MCHC 33.4 g/dL (30-55) 01/05/25 01:46 RDW 13.1 % (12.1-15.1) 01/05/25 01:46 Plt Count 271 10^3/cmm (157-399) 01/05/25 01:46 MPV 10.1 fL (7.4-10.4) 01/05/25 01:46 Neut % (Auto) 52.5 % 01/05/25 01:46 Lymph % (Auto) 37.3 % 01/05/25 01:46 Reynolds % (Auto) 8.3 % 01/05/25 01:46 Eos % (Auto) 1.2 % 01/05/25 01:46 Baso % (Auto) 0.4 % 01/05/25 01:46 Neut # (Auto) 4.70 10^3/uL (1.8-7.7) 01/05/25 01:46 Lymph # (Auto) 3.3 10^3/uL (0.8-4.8) 01/05/25 01:46 Reynolds # (Auto) 0.7 10^3/uL (0.2-0.9) 01/05/25 01:46 Eos # (Auto) 0.1 10^3/uL (0.0-0.8) 01/05/25 01:46 Baso # (Auto) 0.0 10^3/uL (0.0-0.1) 01/05/25 01:46 Nucleated RBC % (auto) 0 % 01/05/25 01:46 Nucleated RBCs # 0.0 /100WBC 01/05/25 01:46 Specimen Type Venous 01/03/25 12:23 Sample Site Brachial, left 01/03/25 12:23 ABG pH 7.24 (7.35-7.45) L 01/03/25 12:23 ABG pCO2 31.8 mmHg (35-45) L 01/03/25 12:23 ABG pO2 30.7 mmHg (80.0-100.0) L* 01/03/25 12:23 ABG PO2/FiO2 Ratio 146 01/03/25 12:23 ABG HCO3 13.6 mmol/L (22-26) L 01/03/25 12:23 ABG Base Excess -12.6 mmol/L (-2.0-2.0) L 01/03/25 12:23 Mayank Test N/a 01/03/25 12:23 Hematocrit 42.3 % (42-52) 01/03/25 12:23 O2 Delivery Device Room air 01/03/25 12:23 FiO2 21.0 % 01/03/25 12:23 [employer] ID Amh 01/03/25 12:23 Sodium 139 mmol/L (136-145) 01/05/25 01:46 Potassium 3.4 mmol/L (3.5-5.1) L 01/05/25 01:46 Chloride 106 mmol/L (98-107) 01/05/25 01:46 Carbon Dioxide 23 mmol/L (22-29) 01/05/25 01:46 Anion Gap 13.4 (5-19) 01/05/25 01:46 BUN 9 mg/dL (6-20) 01/05/25 01:46 Creatinine 0.9 mg/dL (0.7-1.2) 01/05/25 01:46 GFR Calculation 97.2 mL/min (90-130) 01/05/25 01:46 Glucose 86 mg/dL (65-115) 01/05/25 01:46 Estimat Average Glucose 97 01/03/25 11:12 Hemoglobin A1c 5.0 % (4.0-6.0) 01/03/25 11:12 Calculated Osmolality 286 mOsm/kg (285-295) 01/05/25 01:46 Lactic Acid 0.8 mmol/L (0.5-2.2) 01/04/25 06:44 Lactic Acid (Sepsis) 4.9 mmol/L (0.5-2.2) H* 01/03/25 14:10 Calcium 8.3 mg/dL (8.5-10.5) L 01/05/25 01:46 Magnesium 1.9 mg/dL (1.7-2.3) 01/05/25 01:46 Iron 63 ug/dL (59-158) 01/03/25 11:12 TIBC 303 mcg/dl 01/03/25 11:12 % Saturation 20.7 % (20-50) 01/03/25 11:12 Unsat Iron Binding 240 ug/dL (112-347) 01/03/25 11:12 Total Bilirubin 0.4 mg/dL (0.15-1.2) 01/05/25 01:46 AST 30 U/L (0-40) 01/05/25 01:46 ALT 29 U/L (0-41) 01/05/25 01:46 Alkaline Phosphatase 38 U/L (40-130) L 01/05/25 01:46 Total Protein 6.6 g/dL (6.6-8.7) 01/05/25 01:46 Albumin 3.9 g/dL (3.5-5.2) 01/05/25 01:46 Globulin 2.7 g/dL (1.3-4.6) 01/05/25 01:46 Triglycerides 77 mg/dL (0-150) 01/04/25 05:24 Cholesterol 147 mg/dL (0-200) 01/04/25 05:24 LDL Cholesterol, Calc 85 mg/dL (50-129) 01/04/25 05:24 Total VLDL Cholesterol 15 mg/dL (0-30) 01/04/25 05:24 HDL Cholesterol 47 mg/dL (60-100) L 01/04/25 05:24 Cholesterol/HDL Ratio 3.13 mg/dL (1.0-5.00) 01/04/25 05:24 Lipase 13 U/L (13-60) 01/03/25 11:12 Vitamin B12 987 pg/mL (232-1245) 01/03/25 11:12 Folate 6.6 ng/mL (4.5-32.2) 01/04/25 05:24 Procalcitonin 0.71 ng/mL (0-0.5) H 01/03/25 11:12 TSH 0.75 uIU/mL (0.27-4.20) 01/03/25 11:12 Urine Color Yellow (Yellow) 01/03/25 13:13 Urine Appearance Clear (CLEAR) 01/03/25 13:13 Urine pH 5.0 (5-7) 01/03/25 13:13 Ur Specific Ullin 1.088 (1.005-1.030) H 01/03/25 13:13 Urine Protein Trace (Negative) A 01/03/25 13:13 Urine Glucose (UA) Negative (Normal) 01/03/25 13:13 Urine Ketones 3+ (Negative) H 01/03/25 13:13 Urine Blood Negative (Negative) 01/03/25 13:13 Urine Nitrate Negative (Negative) 01/03/25 13:13 Urine Bilirubin Negative (Negative) 01/03/25 13:13 Urine Urobilinogen 0.2 mg/dL (Negative) 01/03/25 13:13 Ur Leukocyte Esterase Negative (Negative) 01/03/25 13:13 Urine RBC 0-2 /hpf (0-2) 01/03/25 13:13 Urine WBC 0-5 /hpf (0-5) 01/03/25 13:13 Ur Squamous Epith Cells 0-5 /hpf (0-5) 01/03/25 13:13 Amorphous Sediment Not Reportable 01/03/25 13:13 Urine Bacteria None seen /hpf (NONE) 01/03/25 13:13 Hyaline Casts 0-4 /lpf H 01/03/25 13:13 Urine Opiates Screen Positive ng/mL (Negative) H 01/03/25 13:13 Ur Barbiturates Screen Negative ng/mL (Negative) 01/03/25 13:13 Ur Phencyclidine Scrn Negative ng/mL (Negative) 01/03/25 13:13 Ur Amphetamines Screen Negative ng/mL (Negative) 01/03/25 13:13 U Benzodiazepines Scrn Negative ng/mL (Negative) 01/03/25 13:13 Urine Cocaine Screen Negative ng/mL (Negative) 01/03/25 13:13 U Marijuana (THC) Screen Positive ng/mL (Negative) H 01/03/25 13:13 Vitals Last Vital Signs Temp 97.9 F 01/05/25 07:42 Pulse 63 01/05/25 07:42 Resp 18 01/05/25 07:42 BP 118/66 01/05/25 07:42 Pulse Ox 99 01/05/25 07:42 O2 Del Method Room Air 01/05/25 07:42 Discharge Plan Discharge Patient Disposition: Home Condition: Stable Prescriptions: New sucralfate 100 mg/mL Suspension 1 g PO BID 14 Days Qty: 280 0RF pantoprazole [Protonix] 40 mg tablet,delayed release (DR/EC) 40 mg PO QAM Qty: 60 0RF Rx Instructions: Twice daily for next 2 weeks followed by once daily tramadol 50 mg tablet 50 mg PO Q8H PRN (Reason: pain) Qty: 14 0RF Continued citalopram 20 mg Tablet 30 mg PO DAILY Discharge Order = DC NOW: Discharge Order (Routine); Ordered 01/05/25 Ordered By: London Carter Discharge Diet: Regular Patient Instructions: Abdominal Pain - Adult, Sucralfate (By mouth), Tramadol (By mouth), Pantoprazole (By mouth), Abdominal Pain (ED), Opioid Safety, Patient Portal & Hammad Instructions Discharge Attestations Time Spent in Discharge Care*: greater than 30 min Specific Discharge Activities: educating patient, educating and/or supporting family/caregiver, discussing with pcp/other providers, discussing with case management specialist/social workers/dc planners, documenting/other paperwork and evaluating patient/reviewing data Status at Discharge: Cognitive status at discharge: cognitively intact, Behavioral status at discharge: cooperative, Functional status at discharge: independent ambulation, Overall status at discharge: patient is back to baseline Quality Metrics Clinical Quality Measures [ No reported AMI, CVA or VTE this stay] Coding Level of Care Code 14407 Total time (in minutes) for Discharge: 65 Diagnoses Abdominal pain R10.9 Elevated lactic acid level R79.89 Vascular spasm I73.9
[2025-01-05] MEDS: pantoprazole 40 mg SDV IVP (08:18)
[2025-01-05] MEDS: cefepime 2,000 mg SDV 2000 MG IVP (08:18)
[2025-01-05] MEDS: sucralfate 1 gm/10 mL Oral Liq UDC PO (08:19)
--- NOTE | 2025-01-05 08:47 | P.PN_ITS ---
Subjective 2 Subjective: Patient doing well over the last 24 hours, has tolerated diet, minimal abdominal pain in the right upper quadrant but tolerating the diet unremarkable progression. Vitals/I&O/Wt Last Vital Signs Temp 97.9 F 01/05/25 07:42 Pulse 63 01/05/25 07:42 Resp 18 01/05/25 07:42 BP 118/66 01/05/25 07:42 Pulse Ox 99 01/05/25 07:42 O2 Del Method Room Air 01/05/25 07:42 01/04/25 01/05/25 01/05/25 22:59 06:59 14:59 Intake Total 1200 / 1600 Balance 1200 / 1600 Weight last 48 hrs Weight 203 lb Weight 200 lb 11.2 oz Weight 199 lb 4.8 oz Weight 200 lb Physical Exam 2 GI: OTHER: Abdomen is soft minimal tender right upper quadrant none distended Data 01/05/25 01:46 01/05/25 01:46 Micro: Microbiology 01/03/25 13:05 Blood Culture - Preliminary Blood NEGATIVE TO DATE 01/03/25 12:22 Blood Culture - Preliminary Blood NEGATIVE TO DATE A&P Assessment and plan 1. Abdominal pain: Plan: 34-year-old male who presented with severe abdominal pain leukocytosis and elevated lactate. Imaging has been normal, lactate level trended down to normal on hospital day 1 and white count has trended down all the way down to normal by today. He is tolerating diet only minimal abdominal pain. No additional intervention is expected from the general surgery standpoint. Will recommend that he completes a 5-day course of antibiotics that can be done as outpatient. Follow-up will be as needed. All other management per medical team. PDMP PDMP Reviewed: Not Reviewed Attestations 2 Medical Necessity Statement*: Per medical team Coding Level of Care Code Acute Code for Chg Fwd Diagnoses Abdominal pain R10.9
[2025-01-05 10:08] VITALS: BP 118/66; PULSE 60; RESP 18; TEMP 37.1; O2SAT 99
== END 2025-01-05 10:11 | disposition home or self-care (01) | DRG 300 ==
LOC: ER 14:13 → ICU 14:47 → MEDSURG 01-04 17:36
PROVIDERS: Admitting Provider Student in an Organized Health Care Education/Training Program; Emergency Provider Emergency Medicine; Visit Provider Student in an Organized Health Care Education/Training Program
DX: I73.89 Other specified peripheral vascular diseases (principal); E87.20 Acidosis, unspecified; T50.995A Adverse effect of other drugs, medicaments and biological substances, initial encounter; R10.11 Right upper quadrant pain; R06.89 Other abnormalities of breathing; F41.9 Anxiety disorder, unspecified; K29.20 Alcoholic gastritis without bleeding
CPT/HCPCS: 36415; 36600; 71275; 74177; 76700; 80053; 80061; 80306; 81001; 82607; 82746; 82803; 83036; 83540; 83550; 83605; 83690; 83735; 84145; 84443; 85025; 87040; 93005; 96365; 96367; 96372; 96375; 96376; 99285; J0692; J1171; J1650; J1885; J2405; J2470; J2543; J3373; J7030; J7042; J7050; J7120; J9999